=== PATIENT | female | born 1955 | race Caucasian/White ===

== ENCOUNTER 2017-02-02 04:14 | Emergency (ER) | payer OTHER ==
[~2017-02-02] VITALS: Ht 162.6 cm; Wt 81.5 kg
[~2017-02-02 04:14] MED LIST: CYMBALTA60 MG; FLUOXETINE HCL20 MG; FLUOXETINE HCL40 MG; KLONOPIN2 MG PO; LEVOTHYROXINE150 MCG; LEVOTHYROXINE88 MCG; LYRICA150 MG PO; MIRTAZAPINE30 MG; MOTRIN600 MG PO; OXYCODONE-APAP1 EAC6; PAXIL40 M1 PO; PROZAC20 M1 PO; SYNTHROID150 MCG PO; VALIUM5 MG PO
[2017-02-02 04:59] LABS: HEMATOCRIT 44.7 % (36.0-46.0); MCH 29.9 PG (29.0-34.0); MCHC 34.7 G/DL (30.0-36.0); MCV 86.3 FL (83-99); MEAN PLAT.VOLUME 10.1 uM^3 (9.5-12.4); PLATELET COUNT 175 K/uL (156-360); RBC DIS.WIDTH-CV 14.2 % (11.8-14.6); RED BLOOD COUNT 5.18 M/uL (3.80-5.20); WHITE BLOOD COUNT 9.1 K/uL (4.1-10.2)
[2017-02-02 05:11] LABS: CHLORIDE 102 mEq/L (99-109); POTASSIUM 3.6 mEq/L (3.7-5.4); SODIUM 133 mEq/L (136-147)
[2017-02-02 05:13] LABS: GLUCOSE 127 mg/dL (70-99)
[2017-02-02 05:14] LABS: ANION GAP 12 MEQ/L (2-14)
[2017-02-02 05:15] LABS: TOTAL BILIRUBIN 0.3 mg/dL (0.0-1.0)
[2017-02-02 05:17] LABS: ALKALINE PHOSPHATASE 105 IU/L (3-129); GFR ESTIMATE (CALCULATED) > 59 mL/min/
[2017-02-02 05:18] LABS: UREA NITROGEN (BUN) 18 mg/dL (9-23)
[2017-02-02 05:20] LABS: LIPASE 108 U/L (1.0-51.0)
[2017-02-02 05:36] LABS: ADD MIUA? YES; BILIRUBIN NEGATIVE; BLOOD SMALL; COLOR YELLOW ((YELLOW)); GLUCOSE (STRIP) NEGATIVE; KETONES NEGATIVE; LEUKOCYTES NEGATIVE; NITRITE NEGATIVE; PROTEIN (STRIP) 30; SPECIFIC GRAVITY 1.011 (1.000-1.030); UROBILINOGEN 0.2 MG/DL (0.2-1.0)
[2017-02-02 06:01] LABS: BACTERIA NONE SEEN /HPF; EPITHELIAL CELLS RARE /HPF; MUCUS TRACE /LPF; RED BLOOD CELLS 0-5 /HPF (0-5); UCUL ADDED? NO; WHITE BLOOD CELLS 0-5 /HPF (0-5)
[2017-02-02 08:48] VITALS: BP 162/80
== END 2017-02-02 08:56 | disposition home or self-care (01) ==
LOC: EME → EDBD 04:14 → EME 08:56
PROVIDERS: Emergency Medicine
DX: K59.00 Constipation, unspecified (principal); E86.0 Dehydration; I10 Essential (primary) hypertension; M79.7 Fibromyalgia; Z87.442 Personal history of urinary calculi; F17.200 Nicotine dependence, unspecified, uncomplicated
CPT/HCPCS: 74177; 80053; 81003; 83605; 83690; 85027; 99281; 99285; J2405; J3010; J7030